=== PATIENT | female | born 2000 | race Two or more races ===

== ENCOUNTER 2024-01-06 09:01 | Inpatient (IN) | payer MEDICAID, SELFPAY ==
[2024-01-05 13:22] LABS: Basophils % (Auto) 1 % (0-2.5); Eosinophils # (Auto) 0.1 Thou/mm3 (0.0-0.5); Eosinophils % (Auto) 1 % (0-10); Hemoglobin 12.3 g/dL (12.0-16.0); Immature Granulocytes % (Auto) 1 % (0-0); Immature Granulocytes Auto 0.04 Thou/mm3 (0.00-0.00); Lymphocytes # (Auto) 1.3 Thou/mm3 (1.0-4.8); Lymphocytes % (Auto) 20 % (10-50); Mean Corpuscular HGB Conc 35.1 g/dl (31.0-37.0); Mean Corpuscular Hemoglobin 29.9 pg (25.0-35.0); Mean Corpuscular Volume 85 fL (80-100); Monocytes # (Auto) 0.5 Thou/mm3 (0.0-0.8); Monocytes % (Auto) 7 % (0-12); Neutrophils # (Auto) 4.5 Thou/mm3 (1.8-7.7); Neutrophils % (Auto) 70 % (37-80); Nucleated Red Blood Cell % 0 /100 WBC (0); Platelet Count 176 Thou/mm3 (140-440); RDW Standard Deviation 41.7 fL (36.4-46.3); Red Blood Count 4.11 Miln/mm3 (4.00-5.20); White Blood Count 6.4 Thou/mm3 (3.6-11.0)
[2024-01-05 13:33] LABS: Anion Gap 7 (7-16); BUN/Creatinine Ratio 11 Ratio (12-20); Blood Urea Nitrogen 8 mg/dL (9-23); Calcium 9.2 mg/dL (8.3-10.6); Chloride 106 mMol/L (98-107); Creatinine (Component) 0.7 mg/dL (0.6-1.3); Glucose 75 mg/dL (74-106); Osmolality,Calculated 271 (275-295); Sodium 137 mMol/L (136-145); eGFR > 60 See Note
[2024-01-05 13:50] LABS: Hepatitis B Surface Antigen Non Reactive (Non React)
[2024-01-05 13:53] LABS: Syphilis Nonreactive (Nonreactive)
[2024-01-06] VITALS (13 sets, daily range): BP systolic 111–149; BP diastolic 63–104; PULSE 66–85; RESP 14–19; TEMP 36.4–36.9; O2SAT 96–100; BMI 27.8
[2024-01-06 10:07] LABS: Basophils % (Auto) 0 % (0-2.5); Eosinophils # (Auto) 0.1 Thou/mm3 (0.0-0.5); Eosinophils % (Auto) 1 % (0-10); Hematocrit 33.9 % (36.0-46.0); Immature Granulocytes % (Auto) 0 % (0-0); Immature Granulocytes Auto 0.03 Thou/mm3 (0.00-0.00); Lymphocytes # (Auto) 1.7 Thou/mm3 (1.0-4.8); Lymphocytes % (Auto) 19 % (10-50); Mean Corpuscular HGB Conc 35.4 g/dl (31.0-37.0); Mean Corpuscular Hemoglobin 29.6 pg (25.0-35.0); Mean Corpuscular Volume 84 fL (80-100); Monocytes # (Auto) 0.6 Thou/mm3 (0.0-0.8); Monocytes % (Auto) 6 % (0-12); Neutrophils # (Auto) 6.6 Thou/mm3 (1.8-7.7); Neutrophils % (Auto) 73 % (37-80); Nucleated Red Blood Cell % 0 /100 WBC (0); Platelet Count 165 Thou/mm3 (140-440); RDW Standard Deviation 40.6 fL (36.4-46.3); Red Blood Count 4.05 Miln/mm3 (4.00-5.20)
--- NOTE | 2024-01-06 10:11 | ESHP_ITS ---
Documentation for date of: 01/06/24 OB Labor/Induct. HPI History of Present Illness : 1 Gestational Age (weeks): 39 Gestational Age (days): 5 History of present illness: 24-year-old G1, P0 who comes at 39 weeks and 5 days for elective primary C- section care overall unremarkable, patient has history of asthma using inhalers as needed. Patient was counseled extensively during care about elective primary C- section versus trial of vaginal delivery. Patient still desires primary Review of Systems Allergic/Immunologic Comments: Denies Past Medical History Surgical History OTHER SURGICAL HX: Denies Past Medical History Comments PMH COMMENT: Asthma Meds Home Medications and Allergies Allergies Allergy/AdvReac Type Severity Reaction Status Date / Time No Known Allergies Allergy Verified 01/06/24 09:41 OB Exam Physical Exam Vital signs: Temp Pulse Resp BP Pulse Ox O2 Del Method 98.0 F 85 14 123/73 98 Room Air 01/06/24 09:48 01/06/24 09:48 01/06/24 09:48 01/06/24 09:48 01/06/24 09:48 01/06/24 09:48 Detailed Labor and Delivery Exam Dilation (cm): 0 Baseline heart rate: 140 monitor accelerations: 15x15 monitor decelerations: None USP variability: Moderate (11-25) Contraction frequency (min): 0 OB Results Labs 01/05/24 11:38 01/05/24 11:38 Labs: Short CBC 01/05/24 Range/Units 11:38 WBC 6.4 (3.6-11.0) Thou/mm3 Hgb 12.3 (12.0-16.0) g/dL Hct 35.0 L (36.0-46.0) % Plt Count 176 (140-440) Thou/mm3 BMP 01/05/24 11:38 Sodium 137 Potassium 4.0 Chloride 106 Carbon Dioxide 24.0 BUN 8 L Creatinine 0.7 Glucose 75 Calcium 9.2 Impressions Impression: 23-year-old G1, P0 at 39 weeks and 5 days. History of asthma. Desires elective primary . Risks were discussed for primary over trial of vaginal delivery including bleeding, infection, injury to adjacent organs and , hysterectomy Patient states understanding of risks and decides to pursue with primary C- section OB Assessment & Plan Additional Plan Additional Plan Comment: 24 1 delivery. Routine admission labs. Patient is n.p.o., consent signed, all questions answered
[2024-01-06 10:45] LABS: Syphilis Nonreactive (Nonreactive)
[2024-01-06] MEDS: ceFAZolin/D5W 2 GM IV 2 GM/100 ML BAG IV (11:09)
[2024-01-06] MEDS: RINGERS LACTATED 1000 ML 1,000 ML 999 ML IV (11:11)
[2024-01-06] MEDS: FAMOTIDINE INJ 10 MG/ML VIAL 2 ML 20 MG IV (11:11)
[2024-01-06] MEDS: CITRIC ACID/SODIUM CITR 15 ML UDC (BICITRA) 30 ML PO (11:12)
--- NOTE | 2024-01-06 12:34 | OBDSUM_ITS ---
Data ([facility]) Data : 1 Para: 0 Term: 0 : 0 : 0 Delivery Data ([facility]) Labor Data ROM Date: 01/06/24 ROM Time: 11:30 Rupture Type: SROM Amniotic Fluid: Clear Delivery Data Labor Onset Stage 1 Date: 01/06/24 Labor Onset Stage 1 Time: 11:30 Labor Onset Stage 2 Date: 01/06/24 Labor Onset Stage 2 Time: 11:56 Delivery Date: 01/06/24 Delivery Time: 11:56 Placenta Delivery Date: 01/06/24 Placenta Delivery Time: 11:57 Delivered by: Brando España Delivery nurse: Erich Stanley Other staff at delivery: Nursery Nurse Other staff at delivery: Corin Sanchez Delivery Method Delivery: Delivery Type: Primary Anesthesia Type Primary Anesthesia: Spinal Placenta Placenta Delivery: Manual Umbilical Cord Umbilical Vessels: 3 Data ([facility]) Frakes Data Gender: Male Weight Grams: 2815 1 Minute Total: 9 5 Minute Total: 9
--- NOTE | 2024-01-06 12:35 | PD.GYNPROC ---
Operative Note - MOBILITY ENGINEER Procedure Date of procedure: 01/06/24 Procedure Performed: Primary low-transverse Indication: Elective. Patient counseled multiple times during her care and today regarding benefits of vaginal delivery versus section. Patient still elected for primary Pre-Op diagnosis: IUP at 39 weeks and 5 days Post-Op diagnosis: IUP at 39 weeks and 5 days Viable male Anesthesia type: Spinal Procedure description: The patient was taken to the OR, spinal anesthesia was used and was adequate.? 2 g of Ancef were given for infection prophylaxis.? She was prepped and draped in dorsal supine position.? ?A Pfannenstiel skin incision was made with a scalpel Incision was carried down through the fascia with the Bovie Fascia was grasped with Aric clamps superiorly and inferiorly and dissected with the Bovie. The rectus muscles were then dissected with the Bovie as well Peritoneum was? entered bluntly. The uterine incision was performed and extended bluntly.? Baby was delivered from vertex presentation without any complications. ?Nose and mouth were suctioned on the operative field, cord was then clamped and cut.? The infant was handed off to the nurse.? Cord blood was obtained. IV oxytocin? was initiated to facilitate uterine contractions. The uterus was exteriorized.? The inside of the uterus was then cleaned with a lap sponge to ensure complete removal of the placental membranes.? Then the hysterotomy was repaired along the uterine incision with 0 Vicryl in a locked fashion and? then in a running fashion with the same suture. 1g of TXA IV was given. The uterus was inspected in the abdomen and noted to be firm,? the uterine incision was reinspected with excellent hemostasis noted after Surgicel snow was applied and 0.2 mg of Methergine IM given Muscle layer closed with 2-0 chromic in in a running fashion Fascia layer was closed with an 0 Vicryl in a running fashion Subcutaneous layer was closed with plain gut Skin was close with 4-0 Monocryl Specimen: none Estimated blood loss (ml): 700 Findings: Normal uterus, tubes, ovaries Complications: none Surgical staff Operation Date: 01/06/24 12:45 <No data on this case meets the specified criteria> Diagnosis Problem List Completed Was Problem List Reviewed/Reconciled?: Yes
[2024-01-06] MEDS: KETOROLAC INJ 30 MG/ML VIAL IVP ×2 (14:15→20:53)
[2024-01-06] MEDS: OXYTOCIN in NS 20 units 20 UNIT/1,000 ML BAG 125 UNIT IV ×2 (14:58→23:06)
[2024-01-07 03:15] VITALS: BP 118/70; PULSE 69; RESP 16; TEMP 36.7; O2SAT 98
[2024-01-07] MEDS: KETOROLAC INJ 30 MG/ML VIAL IVP (03:34)
[2024-01-07 05:34] LABS: Basophils % (Auto) 0 % (0-2.5); Eosinophils # (Auto) 0.1 Thou/mm3 (0.0-0.5); Eosinophils % (Auto) 1 % (0-10); Hematocrit 31.1 % (36.0-46.0); Immature Granulocytes % (Auto) 0 % (0-0); Immature Granulocytes Auto 0.03 Thou/mm3 (0.00-0.00); Lymphocytes # (Auto) 1.3 Thou/mm3 (1.0-4.8); Lymphocytes % (Auto) 16 % (10-50); Mean Corpuscular HGB Conc 35.4 g/dl (31.0-37.0); Mean Corpuscular Hemoglobin 30.1 pg (25.0-35.0); Mean Corpuscular Volume 85 fL (80-100); Monocytes # (Auto) 0.5 Thou/mm3 (0.0-0.8); Monocytes % (Auto) 7 % (0-12); Neutrophils % (Auto) 76 % (37-80); Nucleated Red Blood Cell % 0 /100 WBC (0); Platelet Count 136 Thou/mm3 (140-440); RDW Standard Deviation 40.9 fL (36.4-46.3); Red Blood Count 3.66 Miln/mm3 (4.00-5.20); White Blood Count 7.9 Thou/mm3 (3.6-11.0)
[2024-01-07 08:10] VITALS: BP 123/84; PULSE 71; RESP 18; TEMP 36.4; O2SAT 98
[2024-01-07] MEDS: HYDROcodone/APAP 5/325 TABLET 1 TAB PO ×3 (08:56→19:37)
--- NOTE | 2024-01-07 11:15 | ESPR_ITS ---
Subjective Subjective Interval history: Patient doing well denies any nausea vomiting fever patient has voided Exam Vital Signs Temp Pulse Resp BP Pulse Ox O2 Del Method 98.1 F 69 16 118/70 98 Room Air 01/07/24 03:15 01/07/24 03:15 01/07/24 03:15 01/07/24 03:15 01/07/24 03:15 01/07/24 03:15 Constitutional Constitutional: no acute distress Routine HEENT Exam Head: Present normocephalic and atraumatic Eye: Present EOMI and PERRL ENT: Present mucous membranes moist Routine Neck Exam Neck: Present supple and trachea midline Routine Respiratory Exam Respiratory: Present chest non-tender, lungs clear, normal breath sounds and no resp distress Routine Cardiovascular Exam Cardiovascular: Present RRR Routine Abdominal Exam Abdominal: Present soft and normoactive bowel sounds Routine Extremities Exam Extremities: Present full ROM Routine Skin Exam Skin: Present intact, dry and warm Routine Neurological Exam Neurological: Present alert, oriented X3 and CN II-XII intact Routine Psychiatric Exam Psychiatric: Present normal affect and normal thought process Objective Labs 01/07/24 04:50 01/05/24 11:38 Labs: Laboratory Results - last 24 hr 01/06/24 01/07/24 10:01 04:50 WBC 7.9 RBC 3.66 L Hgb 11.0 L Hct 31.1 L MCV 85 MCH 30.1 MCHC 35.4 RDW Std Deviation 40.9 Plt Count 136 L Neut % (Auto) 76 Lymph % (Auto) 16 [place] % (Auto) 7 Eos % (Auto) 1 Baso % (Auto) 0 Neut # (Auto) 6.0 Lymph # (Auto) 1.3 [place] # (Auto) 0.5 Eos # (Auto) 0.1 Baso # (Auto) 0.0 Immature Gran # (Auto) 0.03 H Absolute Nucleated RBC 0.00 Immature Gran % 0 Nucleated RBC % 0 Blood Type B Positive Antibody Screen NEGATIVE Assessment & Plan Assessment Comment Assessment comment: 23-year-old s/p , postop day 1 Vital signs stable Meeting all postop milestones including voiding, pending passing gas Plan Comment Plan Comment: Continue p.o. care Anticipate discharge tomorrow Time Spent With Patient Time: Total time spent is greater than 50% in coordination of care (as documented) at patient's floor/unit and/or counseling patient:
[2024-01-07 12:10] VITALS: BP 116/78; PULSE 74; RESP 18; TEMP 36.8; O2SAT 99
[2024-01-07 20:10] VITALS: BP 130/81; PULSE 84; RESP 15; TEMP 36.9; O2SAT 99
[2024-01-08] MEDS: HYDROcodone/APAP 5/325 TABLET 1 TAB PO ×3 (01:17→10:03)
[2024-01-08 04:13] VITALS: BP 106/70; PULSE 80; RESP 18; TEMP 37; O2SAT 98
--- NOTE | 2024-01-08 08:16 | PD.LDPPPRG ---
Subjective Subjective Interval history: Patient at the bedside. Afebrile, tolerating p.o., ambulating, voiding, positive flatus Exam Vital Signs Temp Pulse Resp BP Pulse Ox O2 Del Method 98.6 F 80 18 106/70 98 Room Air 01/08/24 04:13 01/08/24 04:13 01/08/24 04:13 01/08/24 04:13 01/08/24 04:13 01/08/24 04:13 Routine Abdominal Exam Comments: Soft, appropriately tender. Uterus firm, below the umbilicus. Incision clean, dry, intact Routine Exam Comments: Lochia similar to menses Routine Extremities Exam Comments: Homans' sign negative Objective Labs 01/07/24 04:50 01/05/24 11:38 Assessment & Plan Assessment Comment Assessment comment: 23-year-old status post elective primary at term. Postop day 2 Plan Comment Plan Comment: Routine care. DC home if stable Time Spent With Patient Time: Total time spent is greater than 50% in coordination of care (as documented) at patient's floor/unit and/or counseling patient:
--- NOTE | 2024-01-08 08:17 | ESDS_ITS ---
DS: Providers Provider Date of admission: 01/06/24 09:01 Primary care physician: Humberto Blanchard MD Admitting Provider: Brando España MD Attending Provider on Admission: Evon Amaral MD Consults: 01/06/24 12:32 Referral Routine Comment: Attending Provider on DC: Brando España MD Discharging Provider: Brando España MD DS: Diagnosis Problem List Completed Was Problem List Reviewed/Reconciled?: Yes Summary/Hosp Course Brief History: 24-year-old G1, P1 who Scheduled primary . Her postop course was unremarkable and on postop day 2 she was discharged home Peripartum Data Delivery Method: Low Transverse Procedures: Procedures Operation Date: 01/06/24 12:45 Actual Procedure Side Surgeon p in OB Not Applicable rBando España MD Time Spent with Patient Time attestation: Total time spent providing and/or coordinating discharge services: Exam Vital Signs Temp Pulse Resp BP Pulse Ox O2 Del Method 98.6 F 80 18 106/70 98 Room Air 01/08/24 04:13 01/08/24 04:13 01/08/24 04:13 01/08/24 04:13 01/08/24 04:13 01/08/24 04:13 Discharge Plan Plan Patient Disposition: HOME (Self Care) Prescriptions/Referrals Prescriptions/Med Rec: New acetaminophen 325 mg Tablet 650 mg PO Q6HR 7 Days Qty: 28 0RF ibuprofen 400 mg Tablet 800 mg PO Q8HR 7 Days Qty: 21 0RF Referrals: Brando España MD [Physician] - (1 week) Humberto Blanchard MD [Primary Care Provider] - Patient/Caregiver Discharge Instructions Education Materials: C Section Dc Print Language: Niuean Stand Alone Forms: [employer] Award Info., Patient Portal Info Letter Discharge Order Discharge Orders: Discharge (Routine); Ordered 01/08/24 Ordered By: Brando España Planned Discharge Date 01/08/24
[2024-01-08 08:45] VITALS: BP 117/75; PULSE 83; RESP 18; TEMP 36.9; O2SAT 97
[2024-01-08] MEDS: IBUPROFEN TAB 400 MG TABLET 800 MG PO (11:18)
[2024-01-12 07:38] LABS: Measles Antibody (IGG), Immun* <13.50 AU/mL
== END 2024-01-08 13:00 | disposition home or self-care (01) | DRG 540 ==
LOC: S4SX 09:03 → S4NX 11:45
PROVIDERS: Admitting Provider Obstetrics & Gynecology; PCP Family Medicine; Visit Provider Student in an Organized Health Care Education/Training Program
PROC: 10D00Z1 Extraction of Products of Conception, Low, Open Approach (ICD-10-PCS; CPT 59514; principal; 2024-01-06 12:30)
DX: O99.52 Diseases of the respiratory system complicating childbirth (principal); J45.909 Unspecified asthma, uncomplicated; Z37.0 Single live birth; Z3A.39 39 weeks gestation of pregnancy
CPT/HCPCS: 36415; 80048; 85025; 86765; 86780; 86850; 86900; 86901; 87340; 87350; A4649; J0689; J1885; J2210; J2274; J2590; J3490; J7120; A9270; J0690; J2270